=== PATIENT | female | born 1980 | race Caucasian/White ===

== ENCOUNTER 2017-01-06 20:01 | Inpatient (IN) | payer SELFPAY ==
[2017-01-06] MEDS ORDERED: Acetaminophen 325 MG Tab, 50 Tab Bulk Bottle PO PRN (20:40)
[2017-01-06] MEDS ORDERED: Acetaminophen 325 MG Tab PO PRN (20:40)
[2017-01-06] MEDS ORDERED: Witch Hazel Medicated Pads 100/Jar TOP PRN (20:40)
[2017-01-06] MEDS ORDERED: Acetaminophen/oxyCODONE 325-5 MG Tab PO PRN (20:40)
[2017-01-06] MEDS ORDERED: Sodium Chloride 0.9% 10 ML Syringe FLUSH PRN (20:40)
[2017-01-06] MEDS ORDERED: Benzocaine 20% Top Spray 56 GM Bottle TOP PRN (20:40)
[2017-01-06] MEDS ORDERED: Ibuprofen 200 MG Tab, 24 Tab Bulk Bottle PO PRN (20:40)
[2017-01-06] MEDS ORDERED: Diphtheria,Pertussis(Acell),Tetanus Vaccine 0.5 ML SDV IM ONE (20:40)
[2017-01-06] MEDS ORDERED: Oxytocin 10 Units/1 ML SDV IM ONE (20:40)
[2017-01-06] MEDS ORDERED: Ibuprofen 600 MG Tab PO PRN (20:40)
--- NOTE | 2017-01-06 21:04 | PCM.LDHP ---
L&D History of Present Illness - General Date of Service: 01/06/17 (labor) Admit Problem/Dx: Patient Status Order with Admit Dx/Problem 01/06/17 20:41 Patient Status [ADT] Routine Admission Diagnosis/Problem Admission Diagnosis/Problem Source of Information: Patient History Limitations: Reports: No Limitations - History of Present Illness Introduction:: presented in labor, without care. G 3 P2 vaginal deliveries. smoker. Thinks she close to being due. Labor started earlier today. unsure of when labor started thinks it was around 1530 today[address] on the way to the hospital Timing/Duration: Reports: minutes: (every minute) Quality: Reports: Pressure Severity: Severe Improves with: Reports: None Worsens with: Reports: None Associated Symptoms: Reports: vaginal fluid - Related Data Allergies/Adverse Reactions: Allergies Allergy/AdvReac Type Severity Reaction Status Date / Time No Known Allergies Allergy Verified 01/06/17 20:40 Past Medical History [employer] History: Reports: : 3 Para: 2 LMP (Approximate): (? RAHUL) H&P Review of Systems - Review of Systems: Review Of Systems: See Below General: Reports: No Symptoms HEENT: Reports: No Symptoms Pulmonary: Reports: No Symptoms Cardiovascular: Reports: No Symptoms Gastrointestinal: Reports: No Symptoms Genitourinary: Reports: No Symptoms Musculoskeletal: Reports: No Symptoms Skin: Reports: No Symptoms Psychiatric: Reports: No Symptoms Neurological: Reports: No Symptoms Hematologic/Lymphatic: Reports: No Symptoms Immunologic: Reports: No Symptoms L&D Exam - Exam Exam: See Below - OB Specific Contraction Intensity: Moderate Movement: Active Heart Tones: Present Heart Tones per Min: 130 Heart Rate (FHR) Variability: Moderate (6-25 bmp) Presentation: Vertex Estimated Weight: 5-6 pounds - Barrientos Score Barrientos Score Cervix Position: Anterior Barrientos Score Consistency: Soft Barrientos Score Effacement: >80% Barrientos Score Dilation: > 5 cm Barrientos Score Infant's Station: +1, +2 Barrientos Score Total: 13 - Exam General: Alert, Oriented HEENT: PERRLA, Conjunctiva Clear, Hearing Intact Neck: Supple Lungs: Clear to Auscultation, Normal Respiratory Effort Cardiovascular: Regular Rate, Regular Rhythm Abdomen: Normal Bowel Sounds, Soft, Pelvis Stable Rectal Exam: Normal Exam Genitourinary: Normal external exam, Cervical dilitation, Enlarged uterus Back Exam: Normal Inspection, Full Range of Motion Extremities: Normal Inspection Skin: Warm, Dry, Intact Neurological: Cranial Nerves Intact, Reflexes Equal Bilateral Psychiatric: Alert, Normal Affect, Normal Mood - Problem List (1) Smoker SNOMED Code(s): 05934807 ICD Code: F17.200 - NICOTINE DEPENDENCE, UNSPECIFIED, UNCOMPLICATED Status : Acute Current Visit: Yes (2) GBS screening not performed SNOMED Code(s): 806866623 ICD Code: [id number] - Status: Acute Current Visit: Yes (3) SROM (spontaneous rupture of membranes) SNOMED Code(s): 265890143 ICD Code: HLT0482 - Status: Acute Current Visit: Yes (4) No care in current SNOMED Code(s): 2598562838613 ICD Code: O09.30 - SUPRVSN OF PREG W INSUFFICIENT ANTENAT CARE, UNSP TRIMESTER Status: Acute Current Visit: Yes Qualifiers: Trimester: third trimester Qualified Code(s): O09.33 - Supervision of with insufficient care, third trimester (5) Precipitous delivery, delivered (current hospitalization) SNOMED Code(s): 127582096 ICD Code: O62.3 - PRECIPITATE LABOR Status: Acute Current Visit: Yes Problem List Initiated/Reviewed/Updated: Yes Orders Last 24hrs: Active Orders 24 hr Category Date Time Status Antiembolic Devices [RC] .Routine Care 01/06/17 20:44 Ordered Communication Order [RC] ASDIRECTED Care 01/06/17 20:41 Ordered Heart Tones [RC] PER UNIT ROUTINE Care 01/06/17 20:41 Ordered May Shower [RC] ASDIRECTED Care 01/06/17 20:40 Ordered Notify Provider Vital Signs [RC] PRN Care 01/06/17 20:40 Ordered Notify Provider [RC] PRN Care 01/06/17 20:41 Ordered Up ad Kamilla [RC] ASDIRECTED Care 01/06/17 20:40 Ordered Up ad Kamilla [RC] ASDIRECTED Care 01/06/17 20:40 Ordered VTE/DVT Education [RC] Click to Edit Care 01/06/17 20:44 Ordered Vital Signs [RC] PER UNIT ROUTINE Care 01/06/17 20:41 Ordered Vital Signs [RC] PFP Care 01/06/17 20:42 Ordered Regular Diet [DIET] Diet 01/07/17 Breakfast Ordered ABO/RH TYPE [BBK] Routine Lab 01/06/17 20:49 Ordered CBC W/O DIFF,HEMOGRAM [HEME] Routine Lab 01/06/17 20:40 Ordered CBC WITH AUTO DIFF [HEME] AM Lab 01/07/17 05:11 Ordered COMPREHENSIVE METABOLIC PN,CMP [CHEM] Routine Lab 01/06/17 20:40 Ordered DRUG SCREEN, URINE [URCHEM] Routine Lab 01/06/17 20:40 Uncollected HIV RAPID SCREEN [CHEM] Routine Lab 01/06/17 20:40 Ordered RUBELLA,ANTIBODY IGG [REF] Routine Lab 01/06/17 20:40 Ordered Acetaminophen [Tylenol Bulk Bottle] Med 01/06/17 20:40 Ordered 325 mg PO Q4H PRN Acetaminophen [Tylenol] Med 01/06/17 20:40 Ordered 650 mg PO Q4H PRN Acetaminophen/oxyCODONE [Percocet 325-5 MG] Med 01/06/17 20:40 Ordered 1 tab PO Q4H PRN Benzocaine [Yudz-M-Cwldvos 20% Dracut] Med 01/06/17 20:40 Ordered See Dose Instructions TOP Q4H PRN Diphth,Pertuss(Acell),Tet Vac [Adacel] Med 01/06/17 20:40 Once 0.5 ml IM .ONCE ONE Ibuprofen [Motrin Bulk Bottle] Med 01/06/17 20:40 Ordered 600 mg PO Q6H PRN Ibuprofen [Motrin] Med 01/06/17 20:40 Ordered 600 mg PO Q6H PRN Oxytocin [Pitocin] Med 01/06/17 20:40 Once 10 unit IM ONETIME ONE Sodium Chloride 0.9% [Saline Flush] Med 01/06/17 20:40 Ordered 10 ml FLUSH ASDIRECTED PRN [place] [Tucks] Med 01/06/17 20:40 Ordered 1 pad TOP ASDIRECTED PRN Assess Lochia [WOMSER] Per Unit Routine Oth 01/06/17 20:40 Ordered Assess Uterine Involution [WOMSER] Per Unit Routine Oth 01/06/17 20:40 Ordered DVT/VTE Prophylaxis Reflex [OM.PC] Routine Oth 01/06/17 20:40 Ordered Ice Therapy [OM.PC] Per Unit Routine Oth 01/06/17 20:46 Ordered Perineal Care [OM.PC] Per Unit Routine Oth 01/06/17 20:46 Ordered Saline Lock Insert [OM.PC] Routine Oth 01/06/17 20:41 Ordered Sitz Bath [OM.PC] Per Unit Routine Oth 01/06/17 20:46 Ordered Resuscitation Status Routine Resus Stat 01/06/17 20:40 Ordered Medication Orders Acetaminophen (Tylenol Bulk Bottle) 325 mg PO Q4H PRN PRN Reason: Pain Acetaminophen (Tylenol) 650 mg PO Q4H PRN PRN Reason: mild pain or fever Benzocaine (Fxyu-K-Vxjccre 20% Dracut) 0 gm TOP Q4H PRN PRN Reason: Perineal Comfort Measure Diphtheria/Tetanus/Acell Pertussis (Adacel) 0.5 ml IM .ONCE ONE Stop: 01/06/17 20:41 Ibuprofen (Motrin Bulk Bottle) 600 mg PO Q6H PRN PRN Reason: Pain Ibuprofen (Motrin) 600 mg PO Q6H PRN PRN Reason: mild pain or fever Oxycodone/Acetaminophen (Percocet 325-5 Mg) 1 tab PO Q4H PRN PRN Reason: Pain (moderate 4-6) Oxytocin (Pitocin) 10 unit IM ONETIME ONE Stop: 01/06/17 20:41 Sodium Chloride (Saline Flush) 10 ml FLUSH ASDIRECTED PRN PRN Reason: Keep Vein Open [place] (Tucks) 1 pad TOP ASDIRECTED PRN PRN Reason: Hemorrhoids Assessment/Plan Comment:: active labor, complete and ready to push vaginal delivery soon No labs or records
--- NOTE | 2017-01-06 21:17 | PCM.DEL ---
L & D Note - General Info Date of Service: 01/06/17 (delivery) - Delivery Note Labor: spontaneous Delivery Outcome: Livebirth Delivery Method: Spontaneous Vaginal Delivery Infant Delivery Mode: Spontaneous Presentation: Vertex Nuchal cord: none Anesthesia Type: None Local anesthetic volume: 4cc Episiotomy Type: None Laceration: none Placenta: intact, spontaneous Cord: 3 vessels Estimated blood loss: 100 Resuscitation needed: No : bulb syringe, stimulated, warmed, blanket used Provider: Skylar España Score 1 min: 9 Score 5 min: 9 Score 10 min: 10 Second Stage Interventions: Reports: Encouragement Given, Pushing Ineffectively , Pushing Involuntarily Delivery Comments (Free Text/Narrative):: This 36 year old G3 now P3 present in active labor and complete.unknown gestation age Aidan delivered GUERA at 2012 vaginally. She was placed on mother's abdomen where she was dried and stimulated. She cried spontaneously. No nuchal cord, Three vessel cord. The placenta was expressed spontaneously intact. IM pitocin was given in the thigh after delivery. No lacerations of cervix, rectum vaginal or perineum were found. EBL 100cc Mother and baby to post in stable condition. Weight 5-7 frist stage 3212-0343 second stage 1564-4287 third stage 8408-2754 - General Info Date of Service: 01/06/17 Admission Dx/Problem (Free Text): Patient Status Order with Admit Dx/Problem 01/06/17 20:41 Patient Status [ADT] Routine Admission Diagnosis/Problem Admission Diagnosis/Problem Functional Status: Reports: pain controlled - Review of Systems General: Reports: No Symptoms HEENT: Reports: no symptoms Pulmonary: Reports: no symptoms Cardiovascular: Reports: No Symptoms Gastrointestinal: Reports: No symptoms Genitourinary: Reports: no symptoms Musculoskeletal: Reports: no symptoms Skin: Reports: no symptoms Neurological: Reports: No Symptoms Psychiatric: Reports: no symptoms - Patient Data Lab Results last 24 hrs: Laboratory Results - last 24 hr 01/06/17 Range/Units 21:03 WBC 18.9 H (4.5-11.0) K/uL RBC 4.93 (3.30-5.50) M/uL Hgb 12.6 (12.0-15.0) g/dL Hct 39.2 (36.0-48.0) % MCV 80 (80-98) fL MCH 26 L (27-31) pg MCHC 32 (32-36) % Plt Count 238 (150-400) K/uL Med Orders - Current: Current Medications Acetaminophen (Tylenol Bulk Bottle) 325 mg PO Q4H PRN PRN Reason: Pain Last Admin: 01/06/17 21:07 Dose: 325 mg Acetaminophen (Tylenol) 650 mg PO Q4H PRN PRN Reason: mild pain or fever Benzocaine (Tgqn-D-Nqnfomy 20% [place]) 0 gm TOP Q4H PRN PRN Reason: Perineal Comfort Measure Ibuprofen (Motrin Bulk Bottle) 600 mg PO Q6H PRN PRN Reason: Pain Last Admin: 01/06/17 21:06 Dose: 600 mg Ibuprofen (Motrin) 600 mg PO Q6H PRN PRN Reason: mild pain or fever Oxycodone/Acetaminophen (Percocet 325-5 Mg) 1 tab PO Q4H PRN PRN Reason: Pain (moderate 4-6) Sodium Chloride (Saline Flush) 10 ml FLUSH ASDIRECTED PRN PRN Reason: Keep Vein Open [place] (Tucks) 1 pad TOP ASDIRECTED PRN PRN Reason: Hemorrhoids Discontinued Medications Diphtheria/Tetanus/Acell Pertussis (Adacel) 0.5 ml IM .ONCE ONE Stop: 01/06/17 20:41 Oxytocin (Pitocin) 10 unit IM ONETIME ONE Stop: 01/06/17 20:41 - Exam General: alert, oriented HEENT: Pupils equal, Pupils reactive, EOMI, Mucous membr. moist/pink Neck: supple Lungs: Clear to auscultation, Normal respiratory effort Cardiovascular: Regular Rate, Regular Rhythm Abdomen: bowel sounds present, soft, no tenderness, no distension (Female) Exam: Normal External Exam, Enlarged Uterus, Vaginal Bleeding Back Exam: Normal Inspection, Full Range of Motion Extremities: no edema Skin: warm, dry, intact Neurological: no new focal deficit Psy/Mental Status: alert, normal affect, normal mood - Problem List & Annotations (1) Smoker SNOMED Code(s): 69684645 Code(s): F17.200 - NICOTINE DEPENDENCE, UNSPECIFIED, UNCOMPLICATED Status: Acute Current Visit: Yes (2) GBS screening not performed SNOMED Code(s): 266258818 Code(s): MFT2926 - Status: Acute Current Visit: Yes (3) SROM (spontaneous rupture of membranes) SNOMED Code(s): 036265850 Code(s): AID4501 - Status: Acute Current Visit: Yes (4) No care in current SNOMED Code(s): 0949640289396 Code(s): O09.30 - SUPRVSN OF PREG W INSUFFICIENT ANTENAT CARE, UNSP TRIMESTER Status: Acute Current Visit: Yes Qualifiers: Trimester: third trimester Qualified Code(s): O09.33 - Supervision of with insufficient care, third trimester (5) Precipitous delivery, delivered (current hospitalization) SNOMED Code(s): 417126664 Code(s): O62.3 - PRECIPITATE LABOR Status: Acute Current Visit: Yes - Problem List Review Problem List Initiated/Reviewed/Updated: Yes - My Orders Last 24 Hours: My Active Orders 01/06/17 20:40 May Shower [RC] ASDIRECTED Notify Provider Vital Signs [RC] PRN Up ad Kamilla [RC] ASDIRECTED Up ad Kamilla [RC] ASDIRECTED COMPREHENSIVE METABOLIC PN,CMP [CHEM] Routine DRUG SCREEN, URINE [URCHEM] Routine HIV RAPID SCREEN [CHEM] Routine RUBELLA,ANTIBODY IGG [REF] Routine Acetaminophen [Tylenol Bulk Bottle] 325 mg PO Q4H PRN Acetaminophen [Tylenol] 650 mg PO Q4H PRN Acetaminophen/oxyCODONE [Percocet 325-5 MG] 1 tab PO Q4H PRN Benzocaine [Wwfr-B-Bodxcxb 20% [place]] See Dose Instructions TOP Q4H PRN Ibuprofen [Motrin Bulk Bottle] 600 mg PO Q6H PRN Ibuprofen [Motrin] 600 mg PO Q6H PRN Sodium Chloride 0.9% [Saline Flush] 10 ml FLUSH ASDIRECTED PRN [place] [Tucks] 1 pad TOP ASDIRECTED PRN Assess Lochia [WOMSER] Per Unit Routine Assess Uterine Involution [WOMSER] Per Unit Routine DVT/VTE Prophylaxis Reflex [OM.PC] Routine Resuscitation Status Routine 01/06/17 20:41 Communication Order [RC] ASDIRECTED Heart Tones [RC] PER UNIT ROUTINE Notify Provider [RC] PRN Vital Signs [RC] PER UNIT ROUTINE Saline Lock Insert [OM.PC] Routine 01/06/17 20:42 Vital Signs [RC] PFP 01/06/17 20:44 Antiembolic Devices [RC] .Routine VTE/DVT Education [RC] Click to Edit 01/06/17 20:46 Ice Therapy [OM.PC] Per Unit Routine Perineal Care [OM.PC] Per Unit Routine Sitz Bath [OM.PC] Per Unit Routine 01/06/17 20:49 ABO/RH TYPE [BBK] Routine 01/07/17 05:11 CBC WITH AUTO DIFF [HEME] AM 01/07/17 Breakfast Regular Diet [DIET] - Assessment Assessment:: 01/06/17 precitpitous without complications Meconium strained fluid - Plan Plan:: active labor, complete and ready to push vaginal delivery soon No labs or records smoker 01/06/17 [facility] 48 hour stay due to unknown GBS status bottle feeding
--- NOTE | 2017-01-07 08:24 | PCM.PNPP ---
- General Info Date of Service: 01/07/17 (Delivery plus one) Admission Dx/Problem (Free Text): Patient Status Order with Admit Dx/Problem 01/06/17 20:41 Patient Status [ADT] Routine Admission Diagnosis/Problem Admission Diagnosis/Problem Functional Status: Reports: pain controlled - Review of Systems General: Reports: No Symptoms HEENT: Reports: no symptoms Pulmonary: Reports: no symptoms Cardiovascular: Reports: No Symptoms Gastrointestinal: Reports: No symptoms Genitourinary: Reports: no symptoms Musculoskeletal: Reports: no symptoms Skin: Reports: no symptoms Neurological: Reports: No Symptoms Psychiatric: Reports: no symptoms - General Info Date of Service: 01/07/17 - Patient Data Vital Signs - most recent: Last Vital Signs Temp 98.5 F 01/07/17 07:29 Pulse 82 01/07/17 07:29 Resp 16 01/07/17 07:29 BP 112/65 01/07/17 07:29 Pulse Ox 98 01/07/17 07:29 Weight - most recent: 319 lb 10.724 oz Lab Results - last 24 hrs: Laboratory Results - last 24 hr 01/06/17 01/06/17 01/06/17 Range/Units 21:03 21:03 21:03 WBC 18.9 H (4.5-11.0) K/uL RBC 4.93 (3.30-5.50) M/uL Hgb 12.6 (12.0-15.0) g/dL Hct 39.2 (36.0-48.0) % MCV 80 (80-98) fL MCH 26 L (27-31) pg MCHC 32 (32-36) % Plt Count 238 (150-400) K/uL Neut % (Auto) (36-66) % Lymph % (Auto) (24-44) % [place] % (Auto) (2-6) % Eos % (Auto) (2-4) % Baso % (Auto) (0-1) % Sodium 139 L (140-148) mmol/L Potassium 3.9 (3.6-5.2) mmol/L Chloride 104 (100-108) mmol/L Carbon Dioxide 26 (21-32) mmol/L Anion Gap 12.9 (5.0-14.0) mmol/L BUN 9 (7-18) mg/dL Creatinine 0.7 (0.6-1.0) mg/dL Est Cr Clr Drug Dosing TNP Estimated GFR (MDRD) > 60 (>60) Glucose 110 H (74-106) mg/dL Calcium 8.5 (8.5-10.1) mg/dL Total Bilirubin 0.3 (0.2-1.0) mg/dL AST 22 (15-37) U/L ALT 24 (12-78) U/L Alkaline Phosphatase 204 H (46-116) U/L Total Protein 6.6 (6.4-8.2) g/dL Albumin 2.1 L (3.4-5.0) g/dL Globulin 4.5 H (2.3-3.5) g/dL Albumin/Globulin Ratio 0.5 L (1.2-2.2) Urine Opiates Screen (NEGATIVE) Ur Oxycodone Screen (NEGATIVE) Urine Methadone Screen (NEGATIVE) Ur Propoxyphene Screen (NEGATIVE) Ur Barbiturates Screen (NEGATIVE) Ur Tricyclics Screen (NEGATIVE) Ur Phencyclidine Scrn (NEGATIVE) Ur Amphetamine Screen (NEGATIVE) U Methamphetamines Scrn (NEGATIVE) Urine MDMA Screen (NEGATIVE) U Benzodiazepines Scrn (NEGATIVE) U Cocaine Metab Screen (NEGATIVE) U Marijuana (THC) Screen (NEGATIVE) HIV-1 Ab Rapid Screen Non-reactive (NON-REACT.) Blood Type 01/06/17 01/07/17 01/07/17 Range/Units 21:03 02:57 05:11 WBC 21.8 H (4.5-11.0) K/uL RBC 4.34 (3.30-5.50) M/uL Hgb 11.1 L (12.0-15.0) g/dL Hct 34.4 L (36.0-48.0) % MCV 79 L (80-98) fL MCH 26 L (27-31) pg MCHC 32 (32-36) % Plt Count 213 (150-400) K/uL Neut % (Auto) 85 H (36-66) % Lymph % (Auto) 8 L (24-44) % [place] % (Auto) 6 (2-6) % Eos % (Auto) 1 L (2-4) % Baso % (Auto) 0 (0-1) % Sodium (140-148) mmol/L Potassium (3.6-5.2) mmol/L Chloride (100-108) mmol/L Carbon Dioxide (21-32) mmol/L Anion Gap (5.0-14.0) mmol/L BUN (7-18) mg/dL Creatinine (0.6-1.0) mg/dL Est Cr Clr Drug Dosing Estimated GFR (MDRD) (>60) Glucose (74-106) mg/dL Calcium (8.5-10.1) mg/dL Total Bilirubin (0.2-1.0) mg/dL AST (15-37) U/L ALT (12-78) U/L Alkaline Phosphatase (46-116) U/L Total Protein (6.4-8.2) g/dL Albumin (3.4-5.0) g/dL Globulin (2.3-3.5) g/dL Albumin/Globulin Ratio (1.2-2.2) Urine Opiates Screen Negative (NEGATIVE) Ur Oxycodone Screen Negative (NEGATIVE) Urine Methadone Screen Negative (NEGATIVE) Ur Propoxyphene Screen Negative (NEGATIVE) Ur Barbiturates Screen Negative (NEGATIVE) Ur Tricyclics Screen Negative (NEGATIVE) Ur Phencyclidine Scrn Negative (NEGATIVE) Ur Amphetamine Screen Positive H (NEGATIVE) U Methamphetamines Scrn Positive H (NEGATIVE) Urine MDMA Screen Negative (NEGATIVE) U Benzodiazepines Scrn Negative (NEGATIVE) U Cocaine Metab Screen Negative (NEGATIVE) U Marijuana (THC) Screen Negative (NEGATIVE) HIV-1 Ab Rapid Screen (NON-REACT.) Blood Type A POSITIVE Med Orders - Current: Current Medications Acetaminophen (Tylenol Bulk Bottle) 325 mg PO Q4H PRN PRN Reason: Pain Last Admin: 01/06/17 21:07 Dose: 325 mg Acetaminophen (Tylenol) 650 mg PO Q4H PRN PRN Reason: mild pain or fever Benzocaine (Qtjh-B-Snhhtmb 20% [place]) 0 gm TOP Q4H PRN PRN Reason: Perineal Comfort Measure Ibuprofen (Motrin Bulk Bottle) 600 mg PO Q6H PRN PRN Reason: Pain Last Admin: 01/06/17 21:06 Dose: 600 mg Oxycodone/Acetaminophen (Percocet 325-5 Mg) 1 tab PO Q4H PRN PRN Reason: Pain (moderate 4-6) Sodium Chloride (Saline Flush) 10 ml FLUSH ASDIRECTED PRN PRN Reason: Keep Vein Open [place] (Tucks) 1 pad TOP ASDIRECTED PRN PRN Reason: Hemorrhoids Discontinued Medications Diphtheria/Tetanus/Acell Pertussis (Adacel) 0.5 ml IM .ONCE ONE Stop: 01/06/17 20:41 Ibuprofen (Motrin) 600 mg PO Q6H PRN PRN Reason: mild pain or fever Oxytocin (Pitocin) 10 unit IM ONETIME ONE Stop: 01/06/17 20:41 Last Admin: 01/06/17 20:16 Dose: 10 unit - Interaction Disposition, : [place] in Room with Family Infant Interaction: Holding Infant Feeding: Bottle Fed Support Person: Significant Other - Recovery Exam Fundal Tone: Firm Fundal Level: At Umbilicus Fundal Placement: Midline Lochia Amount: Small Lochia Color: Rubra/Red Perineum Description: Intact, Minimal Bruising/Swelling Episiotomy/Laceration: None Urinary Elimination: Voided - Exam General: alert, oriented HEENT: Pupils equal Neck: supple Lungs: Clear to auscultation, Normal respiratory effort Cardiovascular: Regular Rate, Regular Rhythm Abdomen: bowel sounds present, soft, no tenderness, no distension Extremities: no edema Skin: warm, dry, intact Wound/Incisions: healing well Neurological: no new focal deficit Psy/Mental Status: alert, normal affect, normal mood Physical Findings Comment:: swelling and edema gone today - Problem List & Annotations (1) Smoker SNOMED Code(s): 61761898 Code(s): F17.200 - NICOTINE DEPENDENCE, UNSPECIFIED, UNCOMPLICATED Status: Acute Current Visit: Yes (2) GBS screening not performed SNOMED Code(s): 701060655 Code(s): IGW9688 - Status: Acute Current Visit: Yes (3) SROM (spontaneous rupture of membranes) SNOMED Code(s): 910560941 Code(s): BKG7819 - Status: Acute Current Visit: Yes (4) No care in current SNOMED Code(s): 0850495357572 Code(s): O09.30 - SUPRVSN OF PREG W INSUFFICIENT ANTENAT CARE, UNSP TRIMESTER Status: Acute Current Visit: Yes Qualifiers: Trimester: third trimester Qualified Code(s): O09.33 - Supervision of with insufficient care, third trimester (5) Precipitous delivery, delivered (current hospitalization) SNOMED Code(s): 214104570 Code(s): O62.3 - PRECIPITATE LABOR Status: Acute Current Visit: Yes (6) Methamphetamine use SNOMED Code(s): 208497940 Code(s): 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, UNCOMPLICATED Status: Acute Current Visit: Yes - Problem List Review Problem List Initiated/Reviewed/Updated: Yes - My Orders Last 24 Hours: My Active Orders 01/06/17 20:40 May Shower [RC] ASDIRECTED Notify Provider Vital Signs [RC] PRN Up ad Kamilla [RC] ASDIRECTED Acetaminophen [Tylenol Bulk Bottle] 325 mg PO Q4H PRN Acetaminophen [Tylenol] 650 mg PO Q4H PRN Acetaminophen/oxyCODONE [Percocet 325-5 MG] 1 tab PO Q4H PRN Benzocaine [Gisd-I-Cdgnpus 20% [place]] See Dose Instructions TOP Q4H PRN Ibuprofen [Motrin Bulk Bottle] 600 mg PO Q6H PRN Sodium Chloride 0.9% [Saline Flush] 10 ml FLUSH ASDIRECTED PRN [place] [Tucks] 1 pad TOP ASDIRECTED PRN Assess Lochia [WOMSER] Per Unit Routine Assess Uterine Involution [WOMSER] Per Unit Routine DVT/VTE Prophylaxis Reflex [OM.PC] Routine Resuscitation Status Routine 01/06/17 20:41 Notify Provider [RC] PRN Vital Signs [RC] PER UNIT ROUTINE Saline Lock Insert [OM.PC] Routine 01/06/17 20:44 Antiembolic Devices [RC] .Routine VTE/DVT Education [RC] Click to Edit 01/06/17 20:46 Ice Therapy [OM.PC] Per Unit Routine Perineal Care [OM.PC] Per Unit Routine Sitz Bath [OM.PC] Per Unit Routine 01/06/17 21:03 RUBELLA,ANTIBODY IGG [REF] Routine 01/07/17 Breakfast Regular Diet [DIET] - Assessment Assessment:: 01/06/17 precipitous without complications Meconium strained fluid 01/07/17 PPD one without complications, precipitous, no care, Meth use during (denied drug use) Doing well this morning, bleeding light, mild cramping HGB 12.6 on admission 11.1 today HIV neg. ABO A pos Rubella pending unknown GBS status - Plan Plan:: active labor, complete and ready to push vaginal delivery soon No labs or records smoker 01/06/17 [facility] 48 hour stay due to unknown GBS status bottle feeding 01/07/17 continue routine cares Social service referral requested 48 hour stay
[2017-01-08 07:44] VITALS: BP 125/95
--- NOTE | 2017-01-08 08:28 | PCM.PNPP ---
- General Info Date of Service: 01/08/17 Admission Dx/Problem (Free Text): Patient Status Order with Admit Dx/Problem 01/06/17 20:41 Patient Status [ADT] Routine Admission Diagnosis/Problem Admission Diagnosis/Problem Functional Status: Reports: pain controlled - Review of Systems General: Reports: No Symptoms HEENT: Reports: no symptoms Pulmonary: Reports: no symptoms Cardiovascular: Reports: No Symptoms Gastrointestinal: Reports: No symptoms Genitourinary: Reports: no symptoms Musculoskeletal: Reports: no symptoms Skin: Reports: no symptoms Neurological: Reports: No Symptoms Psychiatric: Reports: no symptoms - General Info Date of Service: 01/08/17 - Patient Data Vital Signs - most recent: Last Vital Signs Temp 36.6 C 01/08/17 07:42 Pulse 90 01/08/17 07:42 Resp 18 01/08/17 07:42 BP 125/95 H 01/08/17 07:42 Pulse Ox 97 01/08/17 07:42 Weight - most recent: 145 kg I&O - last 24 hours: Intake & Output 01/07/17 01/08/17 01/08/17 22:59 06:59 14:59 Intake Total 600 Balance 600 Med Orders - Current: Current Medications Acetaminophen (Tylenol Bulk Bottle) 325 mg PO Q4H PRN PRN Reason: Pain Last Admin: 01/06/17 21:07 Dose: 325 mg Acetaminophen (Tylenol) 650 mg PO Q4H PRN PRN Reason: mild pain or fever Benzocaine (Ilxv-O-Vxhyozw 20% Renick) 0 gm TOP Q4H PRN PRN Reason: Perineal Comfort Measure Ibuprofen (Motrin Bulk Bottle) 600 mg PO Q6H PRN PRN Reason: Pain Last Admin: 01/06/17 21:06 Dose: 600 mg Oxycodone/Acetaminophen (Percocet 325-5 Mg) 1 tab PO Q4H PRN PRN Reason: Pain (moderate 4-6) Sodium Chloride (Saline Flush) 10 ml FLUSH ASDIRECTED PRN PRN Reason: Keep Vein Open [place] (Tucks) 1 pad TOP ASDIRECTED PRN PRN Reason: Hemorrhoids Discontinued Medications Diphtheria/Tetanus/Acell Pertussis (Adacel) 0.5 ml IM .ONCE ONE Stop: 01/06/17 20:41 Last Admin: 01/07/17 22:49 Dose: 0.5 ml Ibuprofen (Motrin) 600 mg PO Q6H PRN PRN Reason: mild pain or fever Oxytocin (Pitocin) 10 unit IM ONETIME ONE Stop: 01/06/17 20:41 Last Admin: 01/06/17 20:16 Dose: 10 unit - Infant Interaction Infant Disposition, : in Room with Family Interaction: Holding Infant Feeding: Bottle Fed Infant Support Person: Significant Other - Recovery Exam Fundal Tone: Firm Fundal Level: At Umbilicus Fundal Placement: Right Lochia Amount: Small Lochia Color: Rubra/Red Perineum Description: Intact, Minimal Bruising/Swelling Episiotomy/Laceration: None Bladder Status: Voiding Urinary Elimination: Voided - Exam General: alert, oriented HEENT: Pupils equal Neck: supple Lungs: Clear to auscultation, Normal respiratory effort Cardiovascular: Regular Rate, Regular Rhythm Abdomen: bowel sounds present, soft, no tenderness, no distension Extremities: no edema Skin: warm, dry, intact Neurological: no new focal deficit Psy/Mental Status: alert, normal affect, normal mood - Problem List & Annotations (1) Vaginal delivery SNOMED Code(s): 416871661 Code(s): O80 - ENCOUNTER FOR FULL-TERM UNCOMPLICATED DELIVERY Status: Acute Current Visit: Yes (2) GBS screening not performed SNOMED Code(s): 546961011 Code(s): DTH0739 - Status: Acute Current Visit: Yes (3) Methamphetamine use SNOMED Code(s): 698692247 Code(s): 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, UNCOMPLICATED Status: Acute Current Visit: Yes (4) No care in current SNOMED Code(s): 1157338368965 Code(s): O09.30 - SUPRVSN OF PREG W INSUFFICIENT ANTENAT CARE, UNSP TRIMESTER Status: Acute Current Visit: Yes Qualifiers: Trimester: third trimester Qualified Code(s): O09.33 - Supervision of with insufficient care, third trimester (5) Precipitous delivery, delivered (current hospitalization) SNOMED Code(s): 573526673 Code(s): O62.3 - PRECIPITATE LABOR Status: Acute Current Visit: Yes (6) Smoker SNOMED Code(s): 55217406 Code(s): F17.200 - NICOTINE DEPENDENCE, UNSPECIFIED, UNCOMPLICATED Status: Acute Current Visit: Yes - Problem List Review Problem List Initiated/Reviewed/Updated: Yes - Assessment Assessment:: 01/06/17 precipitous without complications Meconium strained fluid 01/07/17 PPD one without complications, precipitous, no care, Meth use during (denied drug use) Doing well this morning, bleeding light, mild cramping HGB 12.6 on admission 11.1 today HIV neg. ABO A pos Rubella pending unknown GBS status 01/08/2017 Day Two precipitous without complications Social Problems-Meth use in (denied by patient) Fundus firm off to right-bleeding slowing - Plan Plan:: active labor, complete and ready to push vaginal delivery soon No labs or records smoker 01/06/17 rouitine cares 48 hour stay due to unknown GBS status bottle feeding 01/07/17 continue routine cares Social service referral requested 48 hour stay 01/08/2017 Continue Routine Cares Waiting to hear from social service referral Will discharge tonight at 48 hrs To see Skyl[facility] or Doctor [place] for 6 week visit
== END 2017-01-08 17:00 | disposition home or self-care (01) | DRG 775 ==
LOC: JP.OBCHECK 20:01 → JP.OB 20:03 → OBSVTOIN 20:14 → JP.OB 20:14 → JP.MS 01-07 00:53
PROVIDERS: ADMIT Nurse Practitioner Family; ATTEND Nurse Practitioner Family
DX: O62.3 Precipitate labor (principal); Z37.0 Single live birth; O99.324 Drug use complicating childbirth; O77.0 Labor and delivery complicated by meconium in amniotic fluid; O99.334 Smoking (tobacco) complicating childbirth; F17.210 Nicotine dependence, cigarettes, uncomplicated; Z3A.00 Weeks of gestation of pregnancy not specified; O09.30 Supervision of pregnancy with insufficient antenatal care, unspecified trimester; O99.320 Drug use complicating pregnancy, unspecified trimester; F15.10 Other stimulant abuse, uncomplicated
CPT/HCPCS: 36415; 80053; 80305; 80307; 85025; 85027; 86762; 86900; 86901; 87449; 90715; 99211; A9270-GY; J2590